=== PATIENT | male | born 1945 | race African-American/Black ===

== ENCOUNTER 2016-12-03 20:43 | Observation (INO) ==
[2016-12-03 21:29] LABS: Basophils % 0.2 % (0.0-0.8); Eosinophils % 0.2 % (0.00-10.9); Hematocrit 26.3 VOL% (42.0-52.0); Hemoglobin 8.7 GM/DL (14.0-18.0); Immature Granulocytes % 1.1 %; Immature Granulocytes Absolute 0.07 #; Lymphocytes # 0.4 10*3/uL (1.4-4.0); Mean Corpuscular HGB Conc 33.1 GM/DL (32-36); Mean Corpuscular Hemoglobin 34 PG (27-34); Mean Corpuscular Volume 102.7 FL (87-102); Mean Platelet Volume 11.5 FL (9.6-12.0); Monocytes # 1.5 10*3/uL (0.11-0.8); Monocytes % 22.9 % (1.7-12.7); Neutrophils # 4.4 10*3/uL (1.4-7.4); Neutrophils % 69.6 % (38.7-73.9); Platelet Count 129 T/CUMM (130-400); Red Blood Count 2.56 MC/CUMM (3.8-5.5); Red Cell Distribution Width 15.3 % (9.3-17.3); White Blood Count 6.3 T/CUMM (4-12)
[2016-12-03 21:54] LABS: Calcium 8.8 MG/DL (8.5-10.1); Magnesium 1.4 MG/DL (1.8-2.4); Osmolality,Calculated 284.4 MOS/KG (273-304)
[2016-12-03 22:02] LABS: Lymphocytes 6 % (20-55); Platelet Estimate Decreased; Segmented Neutrophils 78 % (50-85); Total Cells Counted 100
[2016-12-03 22:03] LABS: Hypochromasia 1+; Microcytosis 1+
--- NOTE | 2016-12-03 22:57 | Emergency Department Note ---
IFede Emily, am scribing for, and in the presence of, Jayant Jara MD 21:23. Marek Kay Hans, MD, personally performed the services described in this documentation, ascribed by Claudia Mistry in my presence, and it is both accurate and complete . Arrival - Arrival Chief Complaint: Extremity Problem ED Nursing Triage Note: Pt arrives via ems from home with complaints of bilateral lower ext weakness. Reports that it has been going on for several days but worsened to the point to where he was unable to ambulate tonight. Pt had loss of bladder and bowel control prior to arrival to ed. PT complains of bilateral shoulder pain at time of triage and legs just being weak. Mode of Arrival: Stretcher Limitations: No Limitations Source: Patient - History of Present Illness HPI Narrative: Pt is a 71 male who came to ED by EMS with c/o bilateral lower extremities weakness, especially right leg pain around ankle and right wrist pain that started today. Pt notes he had to help get up from floor by brother hernán. Pt notes having hx of gout. Pt lives with siblings. Pt notes having new bowel movements tonight, upon arrival of EMS along with urinary incontinence. Onset (ago): hour(s) Consistency: constant Severity: mild, moderate Severity scale (1-10): 4 Quality: aching Allergies/Adverse Reactions: Allergies Allergy/AdvReac Type Severity Reaction Status Date / Time No Known Allergies Allergy Verified 12/03/16 21:00 Home Medications: Home Medications Medication Instructions Recorded Confirmed Type Unable To Obtain [Unable to Obtain] 12/03/16 12/03/16 History Review of System - Review of System 12 point system: reviewed and no additional remarkable complaints except as stated - Review of System Constitutional: Absent: chills, fever Respiratory: Absent: respiratory distress Cardiovascular: Absent: chest pain, syncope Gastrointestinal: Absent: abdominal pain, nausea, vomiting Musculoskeletal: Present: arm pain (right wrist pain), leg pain (right leg pain , expecially in ankle). Absent: neck pain Skin: Absent: rash Neurological: Present: weakness (in lower extremities) Psychiatric: Absent: anxiety Medical,Surgical,& Family Hx - Medical History Cardio: History of: Hypertension HEENT: History of: Eye Problem Rheumatology: History of;: Gout Renal: History of: Renal Problems Gastrointestinal: History of: GERD - Surgical History Thoracic Surgeries: Surgical HX of;: Kidney (Renal Surgery) - Social History Smoking Status: Never smoker Frequency of Alcohol Use: None Type of Drug Use: None Marital Status: Single Lives With:: Sibling Exam Vital Signs: Vital Signs Temperature 97.9 F 12/03/16 20:43 Pulse Rate 105 H 12/03/16 22:35 Respiratory Rate 24 12/03/16 22:35 Blood Pressure 150/78 12/03/16 22:35 O2 Sat by Pulse Oximetry 97 12/03/16 22:35 - General General appearance: alert, in distress (mild distress secondary to pain ) - Head Head exam: Present: atraumatic, normocephalic - Eye Eye exam: Present: PERRL, EOMI - ENT ENT exam: Present: mucous membranes moist - Neck Neck exam: Present: full ROM - Chest Chest inspection: Present: symmetric chest wall rise, tenderness - Respiratory Respiratory exam: Present: normal lung sounds bilaterally. Absent: respiratory distress - Cardiovascular Cardiovascular exam: Present: regular rate, normal rhythm, normal heart sounds - Extremities Exam Extremities exam: Present: tenderness (right wrist is tender, has erythema, and swollen; right ankle is tender). Absent: pedal edema - Neurological Exam Neurological exam: Present: alert, oriented X3, CN II-XII intact. Absent: motor sensory deficit - Psychiatric Psychiatric exam: Present: normal affect, normal mood - Skin Skin exam: Present: warm, dry Course Course Narrative: This patient was evaluated in the ER and he had a gout flareup in the right wrist and also general debility and weakness. His x-ray showed possibly some lytic lesions in the right wrist and he had no prior x-rays and prior bone scans did not show lytic lesions in this area. I discussed his presentation with the hospitalist on-call who agreed to admit him for further workup of his wrist findings on x-ray and also for treatment of his gout and general debility. He does not have good social support network that he can go home with this as part of his admission as well. Results - Labs CBC & BMP: 12/03/16 21:09 12/03/16 21:09 Disposition Clinical Impression: Gout Case discussed with: patient Disposition: Still a Patient Condition: Stable Time of Disposition: 22:55
[2016-12-03 23:00] LABS: Sedimentation Rate-Westergren 117 MM/HR (0-20)
--- NOTE | 2016-12-03 23:22 | Hospitalist History & Physical ---
Assessment and Plan (1) History of multiple myeloma Status: Acute Current Visit: Yes (2) Generalized lower extremity weakness Status: Acute Current Visit: Yes (3) Gout Status: Acute Assessment and plan: Our plan for this patient will be admitting him to our service. Will get physical therapy to evaluate him. I am concerned about his social support at home. Will consult case management for home care needs. Will get Dr. Wyman to see him while he is here. There is a possibility of a new lytic lesion on his wrist. Going to treat the gout and reevaluate in the morning Current Visit: Yes History of Present Illness Chief complaint: Lower extremity weakness History of present illness: Mr. Dowell is a 71 year old male past medical history significant for multiple myeloma kidney cancer and gout who is his normal state of health till today. Patient is on p.o. medications for his malignancies. He is in generally doing okay he usually gets around with a cane and a walker at times. Patient could hardly walk today. He said since he could move he ended up having a bowel movement and urination without making it to the bathroom. Originally it was described as he lost bowel and bladder function that is not necessarily the case as the patient describes it. He is complaining about wrist pain. This is where he normally gets his gout. And it has has had some swelling at that location. There is some changes on his x-ray with some possible additional lytic lesions that previously were not there I was consulted for admission. Home Medications Medication Instructions Recorded Confirmed Type Unable To Obtain [Unable to Obtain] 12/03/16 12/03/16 History Allergies Allergy/AdvReac Type Severity Reaction Status Date / Time No Known Allergies Allergy Verified 12/03/16 21:00 Medical,Surgical,& Family Hx - Medical History Cardio: History of: Hypertension HEENT: History of: Eye Problem Rheumatology: History of;: Gout Renal: History of: Renal Problems Gastrointestinal: History of: GERD - Surgical History Thoracic Surgeries: Surgical HX of;: Kidney (Renal Surgery) - Family History Family History: Reports;: Family Stroke - Social History Smoking Status: Never smoker Frequency of Alcohol Use: None Type of Drug Use: None 12 point system: reviewed and no additional remarkable complaints except as stated Exam - Constitutional Vitals: Period Temp Pulse Resp BP Sys/Salmeron Pulse Ox Last 24 Hr 97.9 F-97.9 F 97-105 20-24 115-150/75-84 97-100 - General General appearance: alert, in mild distress - Head Head exam: Present: atraumatic, normocephalic - Eye Eye exam: Present: PERRL, EOMI - ENT ENT exam: Present: mucous membranes moist - Neck Neck exam: Present: full ROM - Chest Chest inspection: Present: symmetric chest wall rise, tenderness - Respiratory Respiratory exam: Present: normal lung sounds bilaterally. Absent: respiratory distress - Cardiovascular Cardiovascular exam: Present: regular rate, normal rhythm, normal heart sounds - Extremities Exam Extremities exam: Present: tenderness (right wrist is tender, has erythema, and swollen; right ankle is tender). Patient is generally weak in his lower extremities absent: pedal edema - Neurological Exam Neurological exam: Present: alert, oriented X3, CN II-XII intact. Absent: motor sensory deficit - Psychiatric Psychiatric exam: Present: normal affect, normal mood - Skin Skin exam: Present: warm, dry Results - Labs CBC & BMP: 12/03/16 21:09 12/03/16 21:09
[2016-12-03] MEDS ORDERED: methylPREDNISolone 4 MG TABLET PO SCH (23:45)
[2016-12-04] MEDS ORDERED: methylPREDNISolone 4 MG TABLET PO SCH (00:27)
[2016-12-04] MEDS ORDERED: MAGNESIUM SULF RIDER 2 GM in PREMIX 1 EACH IV ONE (01:00)
[2016-12-04 07:15] LABS: Calcium 8.3 MG/DL (8.5-10.1); Osmolality,Calculated 277.7 MOS/KG (273-304); Potassium 3.6 MMOL/L (3.5-5.1); Uric Acid 7.2 MG/DL (3.5-7.2)
[2016-12-04] MEDS ORDERED: COLCHICINE 0.6 MG TABLET PO ONE (07:43)
[2016-12-04] MEDS ORDERED: DEXAMETHASONE 10 MG/1 ML VIAL IV ONE (07:43)
--- NOTE | 2016-12-04 07:46 | Oncology Consult Note ---
Assessment and Plan (1) History of multiple myeloma Status: Acute Assessment and plan: I will order a full skeletal survey today to reassess his axial skeleton due to his myeloma. I will also give him a dose of colchicine and dexamethasone to see if this improves his joint pain given his history of multiple gout flares. I did see the official read on the right wrist x-rays we will see what this is read as once radiology evaluated. This may need orthopedic evaluation if it does not improve. Current Visit: Yes (2) Gout Status: Acute Current Visit: Yes (3) Generalized lower extremity weakness Status: Acute Current Visit: Yes History of Present Illness History of present illness: Mr. Dowell is a 71 year old male with long-standing light chain myeloma who has been on oral therapy now for quite some time. His current treatment is low- dose Revlimid. He has underlying chronic kidney disease and frequent gout flares. He was also recently admitted to [place] approximately 2 months ago. He presented to the emergency room yesterday with weakness and severe pain in his right wrist. The x-ray reportedly showed a lytic lesion in 1 of his response but I do not see the official report for this. On talking with him this morning he states his pain feels more like 1 of his usual gout flares. From a myeloma standpoint, his recent light chain levels have been around his usual baseline. Home Medications Medication Instructions Recorded Confirmed Type Unable To Obtain [Unable to Obtain] 12/03/16 12/03/16 History Allergies Allergy/AdvReac Type Severity Reaction Status Date / Time No Known Allergies Allergy Verified 12/03/16 21:00 Medical,Surgical,& Family Hx - Medical History Cardio: History of: Hypertension HEENT: History of: Eye Problem Rheumatology: History of;: Gout Renal: History of: Renal (Kidney) Cancer, Renal Problems Gastrointestinal: History of: GERD - Surgical History Thoracic Surgeries: Surgical HX of;: Kidney (Renal Surgery) (left kidney removed ) HEENT Surgeries: Comment Only: Eye Surgery (cataract removed from right eye) - Family History Family History: Reports;: Family Stroke - Social History Smoking Status: Never smoker Frequency of Alcohol Use: None Type of Drug Use: None 12 point system: reviewed and no additional remarkable complaints except as stated - Constitutional Constitutional: Present: fatigue - Musculoskeletal Musculoskeletal ROS: Present: arthralgias, joint swelling Exam - Constitutional Vitals: Period Temp Pulse Resp BP Sys/Salmeron Pulse Ox Last 24 Hr 97.9 F-98.6 F 97-108 20-24 115-180/75-120 96-104 General appearance: normal weight, no acute distress - Head Head Exam: Present: normocephalic, atraumatic - Eye Eye Exam: Present: EOMI Pupils: Present: PERRL - ENT ENT exam: Present: normal exam, normal oropharynx - Neck Neck exam: Absent: lymphadenopathy, thyromegaly - Respiratory Respiratory exam: Present: CTAB. Absent: wheezes - Cardiovascular Cardiovascular exam: Present: RRR. Absent: JVD, systolic murmur - GI/Abdominal GI/Abdominal exam: Present: soft. Absent: ascites, distended, mass - Neurological Exam Neurological exam: Present: alert, oriented X3 - Psychiatric Psychiatric exam: Present: normal affect, normal mood - Skin Skin exam: Present: warm, dry Results - Labs CBC & BMP: 12/03/16 21:09 12/04/16 06:27 Lab Results: I have reviewed the past 24 hour labs - Diagnostic Findings Procedure: X-ray: image reviewed by me
--- NOTE | 2016-12-04 07:48 | XRay Report ---
Exam: XR ankle 2V RT Date: 12/03/2016 9:07 PM Comparison: None Indication: Ankle tenderness Technique:[AP and lateral right ankle] Findings: Minimal soft tissue swelling. Small sclerotic ossific finding beneath the medial malleolus. Calcaneal osteophyte at the Achilles tendon insertion. No acute fracture dislocation. Impression: Soft tissue swelling with minimal degenerative changes in the ankle. Small sclerotic ossific finding beneath the medial malleolus which can be seen with accessory ossicle or remote fracture. Calcaneal osteophyte at the Achilles tendon insertion. No acute fracture or dislocation. PROCEDURE INTERPRETED AT [facility] DEPARTMENT OF RADIOLOGY Final Report Signed by: Dr. Sweta Molina
--- NOTE | 2016-12-04 07:51 | XRay Report ---
Exam: XR wrist 2V RT Date: 12/03/2016 9:07 PM Comparison: None Indication: Right wrist tenderness Technique:[AP and lateral right wrist] Findings: Joint space narrowing with sclerosis and, osteophytes, and subchondral cysts. Joint space narrowing which is most pronounced at the level of the PIP joint of the third finger. There is additional more prominent sclerosis involving the middle phalanx of the third finger. No acute fracture or dislocation. 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 It is difficult to exclude additional erosive arthritides. There is additional somewhat indeterminate sclerotic findings involving the middle phalanx of the right second finger in patient with known multiple myeloma. There is some associated periosteal thickening which makes it difficult to exclude chronic osteomyelitis, etc. Follow-up x-rays may be helpful for further evaluation of these findings. PROCEDURE INTERPRETED AT [facility] DEPARTMENT OF RADIOLOGY Final Report Signed by: Dr. Sweta Molina
[2016-12-04] MEDS: PANTOPRAZOLE 40 MG TABLET PO SCH (09:02)
[2016-12-04] MEDS: methylPREDNISolone 4 MG TABLET PO SCH ×4 (09:12→17:08)
--- NOTE | 2016-12-04 09:48 | Hospitalist Progress Note ---
Assessment and Plan (1) Weakness of both lower extremities Status: Acute Assessment and plan: Patient has generalized weakness especially in the legs not sure if it is because of progressive worsening of his myeloma or could be due to medication he is getting. He has been on Revlimid. Daisha has asked for bone survey and need to be followed. Physical therapy is also consulted Current Visit: Yes (2) Anemia Status: Acute Assessment and plan: Noted worsening anemia compared to previous values could be due to progressive disease with myeloma I will get a stool Hemoccult and iron studies and reticulocyte count LDH , haptoglobin ,vitamin B12 and folate level there is no overt bleeding Current Visit: Yes (3) Gout Status: Acute Assessment and plan: Patient with oblique likely acute gouty arthritis and noted dexamethasone and colchicine ordered by Dr. Ashton. Will follow to see the response Current Visit: Yes (4) History of multiple myeloma Status: Chronic Assessment and plan: Followed by Dr. Ashton Current Visit: Yes (5) Chronic kidney disease Status: Chronic Assessment and plan: Patient has stage III CKD overall stable Current Visit: Yes Hospitalist: Subjective Interval history: Mr. 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 He has been on Revlimid. He usually walks with a cane and was admitted after he was not able to get up and walk after he sat down and Porch. He did not have any syncope or loss of consciousness he denies any back pain but he has chronic right shoulder pain and now has sudden increase right wrist pain and swelling for the last 3-4 days. No acute symptom overnight he still has swelling of the wrist without any fever. He feels that strength in the leg may be better. Exam - Constitutional Vitals: Period Temp Pulse Resp BP Sys/Salmeron Pulse Ox Last 24 Hr 97.2 F-98.6 F 95-108 20-24 115-180/71-120 96-104 General appearance: normal weight, no acute distress - Head Head exam: Present: normal inspection, normocephalic, atraumatic - Eye Eye exam: Present: EOMI. Absent: conjunctival injection Pupils: Present: CARRIE, normal accommodation - Neck Neck exam: Present: normal inspection (Supple) - Respiratory Respiratory exam: Present: clear to auscultation bilaterally. Absent: rales, rhonchi - Cardiovascular Cardiovascular exam: Present: regular rate and rhythm. Absent: JVD, tachycardia - GI/Abdominal GI/Abdominal exam: Present: normal bowel sounds, soft. Absent: distended, tenderness - Extremities Exam Extremities exam: Present: other (Right wrist swelling redness and tenderness noted). Absent: edema - Neurological Exam Neurological exam: Present: alert, oriented X3 Results - Labs CBC & BMP: 12/03/16 21:09 12/04/16 06:27 Lab Results: I have reviewed the past 24 hour labs
--- NOTE | 2016-12-04 13:42 | XRay Report ---
Exam: XR bone survey complete Date: 12/04/2016 7:23 AM Comparison: 03/15/2016 Indication: Myeloma . Technique:[2 view skull, cervical spine, thoracic spine, lumbar spine and single view pelvis and all extremities obtained] Findings: Stable midline calcification at the level the interhemispheric fissure. Stable benign-appearing sclerotic densities in the posterior skull location. Diffuse sclerosis and osteophytes in the spine with no acute fracture. Post operative findings in abdomen with mild gaseous distention of the bowel. Stable small exostoses in the proximal left tibia and fibula. Evidence of calcific tendinitis adjacent to the right humeral head. Stable 8mm lucency in the proximal diaphysis of the left humerus and 40 mm in the distal left tibia. Impression: Stable multiple benign-appearing osseous findings. Residual stable lucent finding in the lateral aspect distal left tibia and small finding in the proximal left humerus which may be related patient's known myeloma. No progressive findings are identified. Postoperative findings in the abdomen with mild gaseous distention of the bowel which could be related ileus, etc. PROCEDURE INTERPRETED AT [facility] DEPARTMENT OF RADIOLOGY Final Report Signed by: Dr. Sweta Molina
--- NOTE | 2016-12-04 15:51 | Physician Query Form ---
CLICK EDIT DOCUMENT TO SELECT QUERY ANSWER --> OK --> SIGN Fior Noriega RN Clinical Retail Cashier Associate W) [phone] (f) [phone] [email or web address] PROVIDERS: Make your selection(s) from the choices in EACH section by typing an "x" and enter comments in the comment section. Please use your independent medical judgment in providing your response. This request does not imply that any particular answer is desired or expected. CLINICAL INDICATORS: (Providers should not edit this section) Based on documentation of "He has underlying kidney disease" Creatinine from 2.9 to 2.5. GFR from 27 to 32. Repeat labs checked. Please clarity for Kidney diagnosis and also for Stage of Kidney disease. Clarify which of the following most accurately represents the patient's renal status: ( ) Acute kidney injury (non-traumatic) ( ) Acute renal failure ( ) Acute renal failure with underlying Chronic Kidney Disease (CKD) - please provide stage below ( ) Acute renal failure with pathological renal lesion ( ) Acute renal failure with necrosis ( ) tubular ( ) medullary ( ) cortical (x ) CKD - please provide stage below ( ) End Stage Renal Disease ( ) Acute interstitial nephritis ( ) Hepatorenal syndrome ( ) Other, please specify: ( ) Clinically unable to determine Chronic Kidney Disease Stages Source: National Kidney Disease Foundation ( ) Stage I (eGFR > or = 90) ( ) Stage II (eGFR 60 - 89) (x ) Stage III (eGFR 30 - 59) ( ) Stage IV (eGFR 15 - 29) ( ) Stage V (eGFR < 15 or dialysis) COMMENTS: PLEASE ALSO DOCUMENT RESPONSE IN PROGRESS NOTES AND/OR DISCHARGE SUMMARY Use of terms such as suspected, likely, or probable (associated with a specific diagnosis that is being evaluated, monitored, or treated as if it exists) are acceptable and can be restated in the discharge summary if not ruled out. MTDD
[2016-12-04] MEDS ORDERED: methylPREDNISolone 4 MG TABLET PO ONE (23:00)
[2016-12-05 06:42] LABS: Basophils % 0.1 % (0.0-0.8); Hematocrit 25.7 VOL% (42.0-52.0); Hemoglobin 8.8 GM/DL (14.0-18.0); Immature Granulocytes % 0.6 %; Immature Granulocytes Absolute 0.05 #; Lymphocytes # 0.3 10*3/uL (1.4-4.0); Lymphocytes % 3.4 % (21.2-54.2); Mean Corpuscular HGB Conc 34.2 GM/DL (32-36); Mean Corpuscular Hemoglobin 34 PG (27-34); Mean Corpuscular Volume 100.4 FL (87-102); Mean Platelet Volume 11.8 FL (9.6-12.0); Monocytes # 0.7 10*3/uL (0.11-0.8); Monocytes % 8.4 % (1.7-12.7); Neutrophils # 6.9 10*3/uL (1.4-7.4); Neutrophils % 87.5 % (38.7-73.9); Platelet Count 146 T/CUMM (130-400); Red Blood Count 2.56 MC/CUMM (3.8-5.5); White Blood Count 7.8 T/CUMM (4-12)
[2016-12-05 07:19] LABS: Giant Platelets Few; Hypochromasia 1+; Lymphocytes 3 % (20-55); Platelet Estimate Normal; Segmented Neutrophils 90 % (50-85); Total Cells Counted 100
[2016-12-05 07:20] LABS: Microcytosis Slight
[2016-12-05 07:41] LABS: % Iron Saturation 14.1 % (18-50); Calcium 8.4 MG/DL (8.5-10.1); Ferritin 2091.5 ng/ml (26-388); Potassium 4.3 MMOL/L (3.5-5.1)
[2016-12-05] MEDS: methylPREDNISolone 4 MG TABLET PO SCH ×2 (09:15)
[2016-12-05] MEDS: PANTOPRAZOLE 40 MG TABLET PO SCH (09:15)
--- NOTE | 2016-12-05 14:33 | Discharge Summary ---
Hospital Course - Hospital Course Hospital Course: Mr. 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 He has been on Revlimid. He usually walks with a cane and was admitted on 12/03/2016. He was unable to get up after he sat down on porch. There is no history of syncope or loss of consciousness or back pain. He did have some right-sided shoulder pain and right wrist pain with a swelling. 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 He also had some soft tissue swelling with minimum degenerative changes in the right ankle. Patient was consulted to oncology due to history of for multiple myeloma. Dr. Cm ordered Colcrys and Decadron which was given yesterday and his swelling considerably improved in the wrist and he is able to walk. Dr. Ashton also ordered bone survey and reported as " Stable multiple benign-appearing osseous findings. Residual stable lucent finding in the lateral aspect distal left tibia and small finding in the proximal left humerus which may be related patient'sknown myeloma. No progressive findings are identified." Dr. Cm did not see the patient today but his office was called by the staff nurse and he will continue Revlimid. I will give him 3 days of prednisone. I will not continue Colcrys he did have some diarrhea after taking Colcrys. His allopurinol will be hold for another few days to the acute exacerbation of gout is over. He had anemia and noted his hemoglobin is stable during the stay in the hospital his chronic kidney disease was also stable. He has received maximum benefit from hospitalization will be discharged follow with the primary care and Dr. Cm Diagnosis - Discharge Diagnosis (1) Weakness of both lower extremities Status: Acute (2) Anemia Status: Chronic (3) Gout Status: Acute (4) History of multiple myeloma Status: Chronic (5) Chronic kidney disease Status: Chronic Discharge Plan - Discharge Data Disposition: Disch To Home/Self Care Condition at Discharge: Stable Discharge Diet: advance to your usual diet Activity: resume usual activities as tolerated - Discharge Medications New predniSONE TAB [PredniSONE] 40 mg PO DAILY #6 tablet Pantoprazole Tab [Protonix Tab] 40 mg PO DAILY #30 tablet - Follow Up or Referral Follow Up: Chiki Ashton MD [Physician] - - Forms/Instructions Exam - Constitutional Vitals: Period Temp Pulse Resp BP Sys/[place] Pulse Ox Last 24 Hr 96.8 F-97.7 F 75-96 18-22 113-132/65-71 91-98 General appearance: normal weight, no acute distress - Head Head exam: Present: normal inspection, normocephalic, atraumatic - Eye Eye exam: Present: EOMI. Absent: conjunctival injection Pupils: Present: CARRIE, normal accommodation - Neck Neck exam: Present: normal inspection (Supple) - Respiratory Respiratory exam: Present: clear to auscultation bilaterally. Absent: rales, rhonchi - Cardiovascular Cardiovascular exam: Present: regular rate and rhythm. Absent: JVD, tachycardia - GI/Abdominal GI/Abdominal exam: Present: normal bowel sounds, soft. Absent: distended, tenderness - Extremities Exam Extremities exam: Present: other (Right wrist swelling redness and tenderness noted with considerable improvement). Absent: edema - Neurological Exam Neurological exam: Present: alert, oriented X3 Discharge Results Procedures and tests throughout hospitalization: Pending Orders 12/04/16 09:59 Occult Blood, Stool Routine Labs on day of discharge: Labs from last 24 hours 12/05/16 12/05/16 12/05/16 06:05 06:05 06:05 WBC 7.8 RBC 2.56 L Hgb 8.8 L Hct 25.7 L MCV 100.4 MCH 34 MCHC 34.2 RDW 15.0 Plt Count 146 MPV 11.8 Neut % (Auto) 87.5 H Lymph % (Auto) 3.4 L [place] % (Auto) 8.4 Eos % (Auto) 0.0 Baso % (Auto) 0.1 Neut # (Auto) 6.9 Lymph # (Auto) 0.3 L [place] # (Auto) 0.7 Eos # (Auto) 0.0 Baso # (Auto) 0.0 Total Counted 100 Immature Gran % 0.6 Nucleated RBC % 0.0 Immature Gran # 0.05 Segmented Neutrophils 90 H Lymphocytes 3 L Monocytes 7 Nucleated RBCs # 0.00 Platelet Estimate Normal Giant Platelets Few Immature Plt Fraction 0.0 Hypochromasia 1+ Microcytosis Slight Absolute Retic 0.0 Percent Retic 1.2 Retic Hgb Equivalent 32.4 Haptoglobin 335.0 H Sodium 136 Potassium 4.3 Chloride 106 Carbon Dioxide 22 Anion Gap 12.3 BUN 28 H Creatinine 2.50 H GFR Calculation 32 BUN/Creatinine Ratio 11.00 Glucose 127 H Calculated Osmolality 279.0 Calcium 8.4 L Iron 27 L TIBC 191 L % Saturation 14.1 L Ferritin 2091.5 H Lactate Dehydrogenase 152 Vitamin B12 396 Folate 20.0 DS: Provider Date of admission: 12/03/16 23:27 Primary care physician: . No PCP Attending physician on admission: Moshe Otoole MD Consults: 12/03/16 23:27 Consult to Physician [CONS] Routine Comment: patient of yours Consulting Provider: Chiki Ashton Person Notified: [email or web address] Date Notified: 12/04/16 Time Notified: 09:36 12/03/16 23:28 Consult to Physical Therapy [CONS] Routine Reason for Physical Therapy: Evaluate and Treat 12/04/16 00:42 Consult to Dietitian [CONS] Routine Reason for Dietitian: Supplements and/or Snacks Consult to Pastoral Services [CONS] Routine Comment: Pastoral Screen: Request Filer [facility] Sander Visit Pastoral Screen Source of Request: Patient Discharging clinician: Kali Pantoja MD
[2016-12-05 16:16] VITALS: BP 105/64
== END 2016-12-05 17:22 | disposition home or self-care (01) ==
LOC: EDUNIT# → EDBD → N.ED 20:43 → SUATTDRO 23:27 → INTOOBSV 23:27 → N.EDINP 23:27 → N.2E 12-04 00:24
PROVIDERS: ADMIT Internal Medicine; ATTEND Internal Medicine

== ENCOUNTER 2019-09-01 16:44 | Inpatient (IN) ==
[2019-09-01 18:27] LABS: Basophils % 0.5 % (0.0-0.8); Eosinophils % 0.5 % (0.00-10.9); Hematocrit 20.2 VOL% (42.0-52.0); Immature Granulocytes % 0.5 %; Immature Granulocytes Absolute 0.01 #; Lymphocytes # 0.2 10*3/uL (1.4-4.0); Lymphocytes % 10.8 % (21.2-54.2); Mean Corpuscular HGB Conc 29.7 GM/DL (32-36); Mean Corpuscular Volume 114.1 FL (87-102); Mean Platelet Volume 11.7 FL (9.6-12.0); Monocytes % 16.7 % (1.7-12.7); NRBC # 0.05 10*3/uL; Platelet Count 54 T/CUMM (130-400); Red Blood Count 1.77 MC/CUMM (3.8-5.5); Red Cell Distribution Width 15.8 % (9.3-17.3); White Blood Count 1.9 T/CUMM (4-12)
[2019-09-01 18:44] LABS: Alanine Aminotransferase 31 U/L (16-61); Albumin 2.9 G/DL (3.4-5.0); Alkaline Phosphatase 120 U/L (45-117); Aspartate Amino Transferase 122 U/L (0-37); Bilirubin,Total < 0.39 MG/DL (0.2-1.0); Blood Urea Nitrogen 73 MG/DL (7-18); Calcium 9.2 MG/DL (8.5-10.1); Estimated Glom Filtration Rate 17 ML/MIN; Glucose 109 MG/DL (74-106); Osmolality,Calculated 321.9 MOS/KG (273-304); Total Protein 7.2 G/DL (6.4-8.3)
[2019-09-01 18:47] LABS: Band Neutrophils 4 % (0-10); Lymphocytes 15 % (20-55); Platelet Estimate Decreased; Segmented Neutrophils 70 % (50-85); Total Cells Counted 100
[2019-09-01 18:49] LABS: Macrocytosis 1+
[2019-09-01] MEDS ORDERED: SODIUM POLYSTYRENE SULFATE 15 GM/60 ML BOTTLE PO STA (19:54)
[2019-09-01] MEDS: DEXTROSE 5% NACL 0.45% 1,000 ML IV SCH (19:56)
[2019-09-01] MEDS ORDERED: SODIUM POLYSTYRENE SULFATE 15 GM/60 ML BOTTLE ONE (19:58)
[2019-09-01 20:08] LABS: % Iron Saturation 28.6 % (18-50)
[2019-09-01] MEDS ORDERED: GLUCAGON 1 MG VIAL IM PRN (20:10)
[2019-09-01] MEDS ORDERED: ZALEPLON 5 MG CAPSULE PO PRN (20:10)
[2019-09-01] MEDS ORDERED: ONDANSETRON 4 MG/2 ML VIAL IV PRN (20:10)
[2019-09-01] MEDS ORDERED: ACETAMINOPHEN 325 MG TABLET PO PRN (20:10)
[2019-09-01] MEDS ORDERED: SODIUM CHLORIDE 0.9% 1,000 ML IV PRN (20:21)
[2019-09-01 20:47] LABS: Uric Acid 10.8 MG/DL (3.5-7.2)
[2019-09-01] MEDS ORDERED: POLYETHYLENE GLYCOL POWDER 17 GM PACK PO PRN (20:53)
[2019-09-01 21:14] LABS: Ferritin 503.3 ng/ml (26-388); Thyroid Stimulating Hormone 4.31 uIU/ml (0.358-3.74)
[2019-09-02] MEDS ORDERED: ACETAMINOPHEN 325 MG TABLET PO ONE (00:02)
[2019-09-02] MEDS ORDERED: diphenhydrAMINE CAP 25 MG CAPSULE PO ONE (00:03)
[2019-09-02] MEDS: DEXTROSE 5% NACL 0.45% 1,000 ML IV SCH ×2 (07:27→12:30)
[2019-09-02 07:33] LABS: Eosinophils % 0.4 % (0.00-10.9); Hematocrit 26.7 VOL% (42.0-52.0); Immature Granulocytes % 0.4 %; Immature Granulocytes Absolute 0.01 #; Lymphocytes # 0.2 10*3/uL (1.4-4.0); Mean Corpuscular HGB Conc 30.7 GM/DL (32-36); Mean Corpuscular Volume 96.4 FL (87-102); Mean Platelet Volume 10.5 FL (9.6-12.0); Monocytes % 19.9 % (1.7-12.7); NRBC # 0.03 10*3/uL; Neutrophils % 72.3 % (38.7-73.9); Red Blood Count 2.77 MC/CUMM (3.8-5.5); Red Cell Distribution Width 25.7 % (9.3-17.3); White Blood Count 2.6 T/CUMM (4-12)
[2019-09-02 07:34] LABS: Hemoglobin 8.2 GM/DL (14.0-18.0)
[2019-09-02 07:35] LABS: Platelet Count 42 T/CUMM (130-400)
[2019-09-02] MEDS: MAGNESIUM SULF RIDER 2 GM in PREMIX 1 EACH IV PRN ×2 (07:42→09:45)
[2019-09-02 07:45] LABS: Calcium 9.6 MG/DL (8.5-10.1)
[2019-09-02 07:46] LABS: Osmolality,Calculated 315.3 MOS/KG (273-304)
[2019-09-02 07:52] LABS: Band Neutrophils 1 % (0-10); Eosinophils 1 % (0-10); Hypochromasia 1+; Lymphocytes 4 % (20-55); Microcytosis Slight; Nucleated Red Blood Cells 6 (0-5); Platelet Estimate Decreased; Segmented Neutrophils 82 % (50-85); Total Cells Counted 100
[2019-09-02] MEDS: FAMOTIDINE 20 MG TABLET PO SCH ×2 (09:19→09:22)
[2019-09-02] MEDS: ASCORBIC ACID 500 MG TABLET PO SCH ×2 (09:19→09:22)
[2019-09-02 11:07] LABS: Apearance,Urine Slightly Hazy (Clear); Bacteria,Urine Occasional /HPF (Few); Bilirubin,Urine Negative (Negative); Blood, Urine Small mg/dL (Negative); Glucose,Urine (UA) Negative (Negative); Ketones,Urine Negative (Negative); Mucus,Urine Occasional /LPF (Occasional); Nitrite,Urine Negative (Negative); Protein,Urine Negative; RBC,Urine 3 /HPF (0-4); Squamous Epithelial Cell,Urine Occasional /HPF (0-10); Urine Color Yellow (Yellow); Urine Specific Gravity 1.012 (1.001-1.035); Urine Urobilinogen < 2.0 EU/DL (0.2-1.0); WBC,Urine 1 /HPF (0-6)
[2019-09-02] MEDS: SODIUM ZIRCONIUM CYCLOSILICATE 10 GM PACK PO SCH ×3 (11:58→21:35)
[2019-09-03] MEDS: DEXTROSE 5% NACL 0.45% 1,000 ML IV SCH ×2 (00:35→16:44)
[2019-09-03 05:48] LABS: Albumin 2.6 G/DL (3.4-5.0); Calcium 8.7 MG/DL (8.5-10.1); Osmolality,Calculated 319.1 MOS/KG (273-304)
[2019-09-03] MEDS: ASCORBIC ACID 500 MG TABLET PO SCH (09:36)
[2019-09-03] MEDS: SODIUM ZIRCONIUM CYCLOSILICATE 10 GM PACK PO SCH (09:36)
[2019-09-03] MEDS: FAMOTIDINE 20 MG TABLET PO SCH (09:36)
[2019-09-03] MEDS ORDERED: TUBERCULIN SKIN TEST 0.1 ML SYRINGE INTRADERM ONE (11:24)
[2019-09-03] MEDS: DEXTROSE 5% 1,000 ML IV SCH (16:52)
[2019-09-04] MEDS: DEXTROSE 5% 1,000 ML IV SCH ×3 (05:46→21:07)
[2019-09-04 06:18] LABS: Albumin 2.3 G/DL (3.4-5.0); Osmolality,Calculated 307.8 MOS/KG (273-304)
[2019-09-04] MEDS: DEXTROSE 10% 250 ML BAG IV PRN (07:57)
[2019-09-04] MEDS: FAMOTIDINE 20 MG TABLET PO SCH (10:03)
[2019-09-04] MEDS: ASCORBIC ACID 500 MG TABLET PO SCH (10:03)
[2019-09-05] MEDS: DEXTROSE 5% 1,000 ML IV SCH ×2 (07:07→17:07)
[2019-09-05] MEDS: DEXTROSE 10% 250 ML BAG IV PRN (07:58)
[2019-09-05] MEDS: ASCORBIC ACID 500 MG TABLET PO SCH (08:57)
[2019-09-05] MEDS: FAMOTIDINE 20 MG TABLET PO SCH (08:57)
[2019-09-06] MEDS: DEXTROSE 5% 1,000 ML IV SCH ×2 (08:20→21:20)
[2019-09-06] MEDS: FAMOTIDINE 20 MG TABLET PO SCH (08:20)
[2019-09-06] MEDS: ASCORBIC ACID 500 MG TABLET PO SCH (08:20)
[2019-09-07 09:14] LABS: Basophils % 0.9 % (0.0-0.8); Eosinophils % 0.5 % (0.00-10.9); Hematocrit 22.5 VOL% (42.0-52.0); Hemoglobin 7.3 GM/DL (14.0-18.0); Immature Granulocytes % 0.9 %; Immature Granulocytes Absolute 0.02 #; Lymphocytes # 0.3 10*3/uL (1.4-4.0); Lymphocytes % 11.3 % (21.2-54.2); Mean Corpuscular HGB Conc 32.4 GM/DL (32-36); Mean Corpuscular Volume 92.6 FL (87-102); Mean Platelet Volume 11.1 FL (9.6-12.0); Monocytes % 23.9 % (1.7-12.7); NRBC # 0.02 10*3/uL; Neutrophils % 62.5 % (38.7-73.9); Platelet Count 66 T/CUMM (130-400); Red Blood Count 2.43 MC/CUMM (3.8-5.5); White Blood Count 2.2 T/CUMM (4-12)
[2019-09-07 09:30] LABS: Calcium 8.4 MG/DL (8.5-10.1); Osmolality,Calculated 291.1 MOS/KG (273-304)
[2019-09-07 09:42] LABS: Anisocytosis 1+; Band Neutrophils 1 % (0-10); Eosinophils 3 % (0-10); Lymphocytes 17 % (20-55); Macrocytosis 1+; Platelet Estimate Decreased; Poikilocytosis Slight; Segmented Neutrophils 59 % (50-85); Total Cells Counted 100
[2019-09-07] MEDS: DEXTROSE 5% 1,000 ML IV SCH ×2 (10:00→21:50)
[2019-09-07] MEDS: FAMOTIDINE 20 MG TABLET PO SCH (10:00)
[2019-09-07] MEDS: ASCORBIC ACID 500 MG TABLET PO SCH (10:00)
[2019-09-08] MEDS: DEXTROSE 5% 1,000 ML IV SCH ×2 (03:00→10:08)
[2019-09-08 06:33] LABS: Basophils % 0.5 % (0.0-0.8); Eosinophils % 0.9 % (0.00-10.9); Hematocrit 22.3 VOL% (42.0-52.0); Hemoglobin 7.1 GM/DL (14.0-18.0); Immature Granulocytes % 0.9 %; Immature Granulocytes Absolute 0.02 #; Lymphocytes # 0.3 10*3/uL (1.4-4.0); Lymphocytes % 13.6 % (21.2-54.2); Mean Corpuscular HGB Conc 31.8 GM/DL (32-36); Mean Corpuscular Volume 94.1 FL (87-102); Mean Platelet Volume 11.7 FL (9.6-12.0); Monocytes % 29.5 % (1.7-12.7); Neutrophils % 54.6 % (38.7-73.9); Red Blood Count 2.37 MC/CUMM (3.8-5.5); Red Cell Distribution Width 22.8 % (9.3-17.3); White Blood Count 2.2 T/CUMM (4-12)
[2019-09-08 06:37] LABS: Platelet Count 80 T/CUMM (130-400)
[2019-09-08 06:54] LABS: Eosinophils 2 % (0-10); Lymphocytes 9 % (20-55); Segmented Neutrophils 62 % (50-85); Total Cells Counted 100
[2019-09-08 06:55] LABS: Hypochromasia 1+; Microcytosis Slight; Platelet Estimate Decreased
[2019-09-08 06:57] LABS: Calcium 8.6 MG/DL (8.5-10.1)
[2019-09-08] MEDS: ASCORBIC ACID 500 MG TABLET PO SCH (09:37)
[2019-09-08] MEDS: FAMOTIDINE 20 MG TABLET PO SCH (09:37)
[2019-09-08] MEDS ORDERED: SODIUM CHLORIDE 0.9% 1,000 ML IV PRN (11:04)
[2019-09-09] MEDS: DEXTROSE 5% 1,000 ML IV SCH (01:34)
[2019-09-09 05:13] LABS: Basophils % 0.6 % (0.0-0.8); Eosinophils % 0.3 % (0.00-10.9); Hematocrit 31.4 VOL% (42.0-52.0); Hemoglobin 10.4 GM/DL (14.0-18.0); Immature Granulocytes % 0.9 %; Immature Granulocytes Absolute 0.03 #; Lymphocytes # 0.3 10*3/uL (1.4-4.0); Lymphocytes % 9.4 % (21.2-54.2); Mean Corpuscular HGB Conc 33.1 GM/DL (32-36); Mean Corpuscular Volume 90.2 FL (87-102); Mean Platelet Volume 10.8 FL (9.6-12.0); Monocytes % 19.4 % (1.7-12.7); Neutrophils % 69.4 % (38.7-73.9); Red Blood Count 3.48 MC/CUMM (3.8-5.5); Red Cell Distribution Width 19.9 % (9.3-17.3); White Blood Count 3.2 T/CUMM (4-12)
[2019-09-09 05:16] LABS: Platelet Count 97 T/CUMM (130-400)
[2019-09-09 05:22] LABS: Calcium 8.6 MG/DL (8.5-10.1); Osmolality,Calculated 287.2 MOS/KG (273-304)
[2019-09-09 06:56] LABS: Hypochromasia 1+; Lymphocytes 9 % (20-55); Microcytosis Slight; Platelet Estimate Decreased; Segmented Neutrophils 78 % (50-85); Total Cells Counted 100
[2019-09-09] MEDS: FAMOTIDINE 20 MG TABLET PO SCH (08:37)
[2019-09-09] MEDS: ASCORBIC ACID 500 MG TABLET PO SCH (08:37)
[2019-09-09 11:39] VITALS: BP 105/57
== END 2019-09-09 13:50 | disposition hospice, inpatient (51) | DRG 840 ==
LOC: EDBD → EDUNIT# → N.ED 16:44 → SUPCPDRO 20:10 → N.EDINP 20:10 → SUATTDRO 20:10 → N.EDINP 22:55 → N.TELES 23:02 → N.4E 09-06 14:50
PROVIDERS: ADMIT Internal Medicine; ATTEND Family Medicine